=== PATIENT | female | born 1965 | race Caucasian/White ===

== ENCOUNTER 2016-10-09 16:53 | Emergency (ER) | payer MEDICAID ==
[~2016-10-09] VITALS: Ht 165.1 cm; Wt 70.0 kg
[~2016-10-09 16:53] MED LIST: ESCI10TA10 PO
[2016-10-09 17:10] VITALS: BP 137/91
[2016-10-09] MEDS ORDERED: KETOROLAC 30 MG/1 ML IM ONE (18:30)
[2016-10-09] MEDS ORDERED: KETOROLAC 30 MG/1 ML ONE (18:33)
== END 2016-10-09 18:50 | disposition home or self-care (01) ==
LOC: ED 18:44
DX: S83.91XA Sprain of unspecified site of right knee, initial encounter (principal); X58.XXXA Exposure to other specified factors, initial encounter; Y93.89 Activity, other specified; Y92.89 Other specified places as the place of occurrence of the external cause; Y99.9 Unspecified external cause status
CPT/HCPCS: 29505; 73564; 96372; 99284; J1885